=== PATIENT | female | born 1970 | race Caucasian/White ===

== ENCOUNTER 2020-03-03 00:51 | Emergency (ER) | payer SELFPAY ==
--- NOTE | 2020-03-03 01:02 | PC.NURSE ---
Patient was seen leaving the ED and getting into a vehicle. Patient left without being seen by this nurse or EDP. call specialist notified.
== END 2020-03-03 04:06 | disposition left against medical advice (07) ==
LOC: ANHED 04:05
DX: Z53.21 Procedure and treatment not carried out due to patient leaving prior to being seen by health care provider (principal)
CPT/HCPCS: 99199

== ENCOUNTER 2021-05-13 05:17 | Emergency (ER) | payer OTHER, SELFPAY ==
[2021-05-13] VITALS (41 sets, daily range): BP systolic 102–159; BP diastolic 65–124; PULSE 95–138; RESP 17–35; TEMP 36.7; O2SAT 81–100
--- NOTE | ~2021-05-13 | XR_ITS ---
XR chest 2V DATE: 05/13/2021 06:38 INDICATION: Shortness of breath, cough. History of congestive heart failure. TECHNIQUE: PA and lateral views COMPARISON: None FINDINGS: There is a globular enlarged cardiac silhouette consistent with cardiomegaly/cardiomyopathy and/or pericardial effusion. There is mild pulmonary vascular congestion. There are bilateral infiltrates involving particularly t he right upper and lower lung zones and left lower lobe. Differential diagnosis includes pulmonary ed tutu and/or pneumonia. Minimal right pleural effusion is suggested. No pneumothorax. IMPRESSION: Enlarged globular cardiac silhouette consistent with cardiomyopathy and/or pericardial ef fusion Congestive changes Bilateral pulmonary infiltrates, right greater than left similar: Diffusion diagnosis includes pulmon jose m edema and/or pneumonia Reviewed, dictated and finalized at location A. IMPRESSION: Enlarged globular cardiac silhouette consistent with cardiomyopathy and/or pericardial effusion Congestive changes Bilateral pulmonary infiltrates, right greater than left similar: Diffusion emilee gnosis includes pulmonary edema and/or pneumonia
--- NOTE | 2021-05-13 06:27 | ECG_ITS ---
Measurements Intervals [place] Rate: 119 P: 51 GA: 139 QRS: -20 QRSD: 114 T: 133 QT: 317 QTc: 446 Interpretive Statements SINUS TACHYCARDIA ATRIAL PREMATURE COMPLEX LEFT ATRIAL ENLARGEMENT INTRAVENTRICULAR CONDUCTION DELAY LEFT VENTRICULAR HYPERTROPHY AND ST-T CHANGE BASELINE ARTIFACT- II, III, AVR, AVF, V3-V6 ABNORMAL ECG Electronically Signed On 05-13-2021 7:36:15 CDT by Danish Jung D.O.
--- NOTE | 2021-05-13 07:15 | ED.SOB ---
HPI - SOB/Dyspnea General Chief Complaint: Shortness of Breath/Dyspnea Stated Complaint: SOB Time Seen by Provider: 05/13/21 07:13 History of Present Illness HPI Narrative: 50 yo female w/ h/o CHF presents to the ED for SOB. She is an unreliable historian. She believes that she has pericytes in her chest that are causing this. She has an envelope with borrero smudges on it that she says are flies that came out of her nose. She bought a small microscope to prove this. 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 Related Data Home Medications Medication Instructions Recorded Confirmed carvedilol 25 mg PO BID 05/13/21 05/13/21 dextroamphetamine-amphetamine 30 mg PO DAILY PRN 05/13/21 05/13/21 [Adderall] furosemide [Lasix] 40 mg PO BID 05/13/21 05/13/21 losartan 25 mg PO DAILY 05/13/21 05/13/21 spironolactone [Aldactone] 25 mg PO DAILY 05/13/21 05/13/21 Allergies Allergy/AdvReac Type Severity Reaction Status Date / Time No Known Allergies Allergy Verified 05/13/21 07:35 Review of Systems Review of Systems: All systems reviewed & are unremarkable except as noted in HPI and below Constitutional: Constitutional: Reports chills and Denies fever(s) ENT: Denies sore throat Cardiovascular: Cardiovascular: Reports chest pain Respiratory: Respiratory: Reports chest congestion, Reports cough and Reports dyspnea Gastrointestinal: Gastrointestinal: Reports no additional gastrointestinal complaints Neurologic: Reports system reviewed and no additional complaints, except as documented [facility] Past Medical History Medical History (Updated 05/13/21 @ 16:55 by James Tracy MD) CHF (congestive heart failure) Social History Social History (Updated 05/13/21 @ 16:56 by James Tracy MD) Gender identity (if verbalized by the patient): Female Exam Const: General: alert Orientation/consciousness: patient oriented x3 HENMT: Head: normal to inspection Neck: Neck: normal visual inspection Resp: Effort & Inspection: tachypneic Auscultation: crackles Cardio: Rate: tachycardic Rhythm: regular rhythm GI: GI Palp: Yes Soft to palpation and No Tenderness to palpation present (GI) Skin: General skin exam: normal color Neuro: General: patient oriented x3, moves all extremities and no focal motor deficits Speech: normal speech Extrem: General: normal to inspection and no edema Psych: Affect: Anxious affect present Thought content: Yes Paranoid delusions present Course Vital Signs Vital signs: Vital Signs Pulse Rate 120 H 05/13/21 05:26 Respiratory Rate 31 H 05/13/21 05:26 Blood Pressure 149/81 H 05/13/21 05:26 Pulse Oximetry 95 05/13/21 05:26 Temperature 36.7 C 05/13/21 10:04 Pulse Rate 111 H 05/13/21 10:31 Respiratory Rate 33 H 05/13/21 10:31 Blood Pressure 142/96 H 05/13/21 10:31 Pulse Oximetry 91 05/13/21 10:31 MDM - SOB/Dyspnea MDM Narrative Medical decision making narrative: Admission arranged for CHF exacerbation. She subsequently decided to sign out AMA. Differential Diagnosis Differential diagnosis: Likely congestive heart failure and community acquired pneumonia Medical Records Attestation: I reviewed the patient's medical records. Lab Data Attestation: I reviewed the patient's lab results. Result diagrams: 05/13/21 07:12 05/13/21 07:12 Labs: Lab Results 05/13/21 05/13/21 05/13/21 Range/Units 07:11 07:11 07:11 WBC (4.5-10.0) K/mm3 RBC (4.2-5.4) M/mm3 Hgb (12.0-15.0) g/dL Hct (37.0-47.0) % MCV (80-100) fl MCH (26-34) pg MCHC (32-36) g/dl RDW (11.5-14.5) % Plt Count (150-375) k/mm3 MPV (7.4-10.4) fl Immature Gran % (Auto) (0-0.5) % Neut % (Auto) (45.5-73.1) % Lymph % (Auto) (18.3-44.2) % Wilson % (Auto) (2.6-8.5) % Eos % (Auto) (0-4.4) % Baso % (Auto) (0.2-1.2) % Lymph # (Auto) (0.9-3.2) K/mm3 Wilson # (Auto) (0.1-0.6) K/mm3
[2021-05-13 07:20] LABS: Basophils Percent Auto 0.2 % (0.2-1.2); Eosinophils Absolute Auto 0.1 K/mm3 (0-0.3); Eosinophils Percent Auto 1.1 % (0-4.4); Hematocrit 37.4 % (37.0-47.0); Hemoglobin 12.2 g/dL (12.0-15.0); Immature Granulocyte Absolute 0.03 K/mm3 (0.00-0.031); Immature Granulocyte Percent A 0.2 % (0-0.5); Lymphocytes Absolute Auto 1.35 K/mm3 (0.9-3.2); Lymphocytes Percent Auto 11.2 % (18.3-44.2); Mean Corpuscular HGB Conc 32.6 g/dl (32-36); Mean Corpuscular Hemoglobin 30.7 pg (26-34); Mean Corpuscular Volume 94.2 fl (80-100); Mean Platelet Volume 10.7 fl (7.4-10.4); Monocytes Absolute Auto 0.7 K/mm3 (0.1-0.6); Monocytes Percent Auto 5.8 % (2.6-8.5); Neutrophils Absolute Auto 9.8 K/mm3 (1.3-6.7); Neutrophils Percent Auto 81.5 % (45.5-73.1); Platelet Count Result 267 k/mm3 (150-375); Red Blood Count 3.97 M/mm3 (4.2-5.4); Red Cell Distribution Width 13.9 % (11.5-14.5)
--- NOTE | 2021-05-13 07:20 | PC.NURSE ---
Report received from JULISSA Brice. Initial contact with patient for EKG. Dr. Tracy at bedside for exam. Pt anxious, diaphoretic. Points to dark specks on an envelope she has brought, along with a microscope and states that those are parasites that are in me. I can't breathe . Note pt sounds wet. Attempt to transition coach on slowing breathing. Pt shouts I can't I can't! I can't breathe . Attempt to calm patient. Spo2 98-100%. No peripheral edema noted.
[2021-05-13 07:55] LABS: Anion Gap 9 mmol/L (8-16); Blood Urea Nitrogen 25 mg/dL (7-17); Calcium 9.5 mg/dL (8.4-10.2); Carbon Dioxide 22 mmol/L (22-30); Chloride 107 mmol/L (98-107); Estimated CRCL calculation 66 ml/min; Estimated Glomerular Filt Rate > 60; Glucose 108 mg/dL (65-110); Potassium 4.2 mmol/L (3.4-5.0); Sodium 138 mmol/L (137-145)
[2021-05-13] MEDS: FUROSEMIDE INJ 40 MG/4 ML VIAL IV PUSH (07:56)
[2021-05-13] MEDS: METOPROLOL TARTRATE INJ 5 MG/5 ML VIAL IV PUSH (07:57)
--- NOTE | 2021-05-13 08:06 | PC.NURSE ---
Meds given IVP as ordered. Pt seems calmer at present but continues to speak of the parasites that are invading her body, and no one believes me . BSC brought to bed with measurement. Pt told that we're measuring her urine output.
[2021-05-13 08:26] LABS: Prothrombin Time 12.9 Seconds (11.1-14.7)
[2021-05-13 08:27] LABS: Partial Thromboplastin Time 29.9 SECONDS (22.3-36.8)
[2021-05-13 08:38] LABS: Add Urine Microscopic? NO; Appearance Urine Clear (Clear); Bilirubin Urine Negative (Negative); Blood Urine Negative (Negative); Color Urine Straw (Yellow); Glucose Urine UA Negative (Negative); Ketones Urine Negative (Negative); Leukocyte Esterase Ur Negative LEU/UL (Negative); Nitrate Urine Negative (Negative); Protein Urine Negative (Negative); Specific Grav Ur 1.013 (1.001-1.035); Urobilinogen Urine Negative mg/dL (<2.0)
[2021-05-13 08:44] LABS: Alanine Aminotransferase 29 U/L (4-35); Albumin Level 4.4 g/dL (3.5-5.1); Alkaline Phosphatase 96 U/L (38-126); Aspartate Amino Transferase 44 U/L (14-36); Bilirubin,Total 0.7 mg/dL (0.2-1.3)
[2021-05-13 08:54] LABS: NT Pro B Type Natriuretic Pept 17700 pg/mL (5-100)
--- NOTE | 2021-05-13 08:55 | PC.NURSE ---
Pt appears much calmer at present but denies feeling any better. Continues to void via BSC.
[2021-05-13 10:14] LABS: Amphetamine Screen Urine Positive (Negative); Barbiturate Screen Urine Negative (Negative); Benzodiazepines Screen Urine Negative (Negative); Cannabinoid Screen Urine Negative (Negative); Cocaine Screen Urine Negative (Negative); Methadone Screen Urine Negative (Negative); Opiate Screen Urine Negative (Negative); Phencyclidine Screen Urine Negative (Negative)
--- NOTE | 2021-05-13 10:30 | PC.NURSE ---
In to update patient, explained awaiting additional troponin blood draw, states that she feels she would rather be in [place]. Can I be transferred there? . Explained EMTALA to patient, and that we could certainly try to transfer her to her driver/guide service but that we have to have an accepting physician. States well, what if I just leave? . When asked if there was a problem with [facility], pt states no, not really. No one seems to believe me that there are parasites in my nose and in my blood . Explained that the physician is awaiting blood cultures currently, but overwhelmingly the sob seems to be caused from CHF. Pt states well, something gave me this heart failure. I have a masters degree and I'm a young woman. I shouldn't have this already . Explained that it can be caused by many reasons. Also noted pt is positive for methamphetamine in her urine. States she takes adderal to amp me up. I'm so tired all the time . Reports last took two days ago so she could get some stuff done . Explained to patient that amphetamines are very bad for her heart as well. Pt and daughter at bedside still report would like to go to a [facility]. Offered to tell Dr. Tracy that pt would like to be transferred, states I'm just going to go myself . AMA process explained to patient and pt wishes to do this. Dr. Tracy made aware of pt's decision to sign AMA. Pt signs AMA paperwork, IV dc'd, and patient assisted to vehicle via w/c.
== END 2021-05-13 10:41 | disposition left against medical advice (07) ==
PROVIDERS: Emergency Provider Emergency Medicine
DX: I50.9 Heart failure, unspecified (principal)
CPT/HCPCS: 36415; 71046; 80048; 80076; 80307; 81003; 83880; 84484; 85025; 85610; 85730; 87040; 93005; 96374; 96375; 99284; J1940